=== PATIENT | female | born 1980 | race Caucasian/White ===

== ENCOUNTER 2018-04-08 16:11 | Emergency (ER) | payer OTHER ==
[2018-04-08] MEDS ORDERED: Pepcid 20 MG VIAL IV ONE ×2 (16:35→16:56)
[2018-04-08] MEDS ORDERED: TORAdol 30 mg Injection IV ONE (16:35)
[2018-04-08] MEDS ORDERED: Sodium Chloride 0.9% 1000 ML 1,000 ML IV SCH (16:45)
[2018-04-08 16:54] LABS: BASOPHIL % 0.1 % (0.0-0.4); Basophil (Absolute #) 0.01 (0-0.4); Granulocyte Absolute (ANC) 6.75 (1.4-6.9); Granulocytes % 69.5 % (36.0-66.0); Hematocrit 38.2 % (35-47); Hemoglobin 13.1 gm/dl (12.0-16.0); Lymphocytes % 21.6 % (24.0-44.0); Mean Cell Volume 90.1 fl (78-100); Mean Corpuscular Hemoglobin 30.9 pg (26-32); Mean Corpuscular Hgb Concent. 34.3 g/dl (32-36); Monocyte (Absolute #) 0.76 (0.0-1.3); Monocytes % 7.8 % (0.0-12.0); Platelet Count 261 K/mm3 (150-450); Red Blood Count 4.24 M/mm3 (4.1-5.4); Red Cell Distribution Width 13.9 % (11.5-14.0); White Blood Count 9.7 K/mm3 (4.0-10.5)
--- NOTE | 2018-04-08 16:54 | ERPHSYRPT ---
- History of Present Illness Time Seen by Provider: 04/08/18 16:35 Historian: patient Exam Limitations: no limitations Patient Subjective Stated Complaint: pt reports abd pain for 3 days. localized to the right upper quad radiating around to the back. states her chiropractor told her it could be related to her gallbladder. Triage Nursing Assessment: pt is aox3, pupils perrl, resps easy and non labored , pt afebrile, radial pulses strong and equal, abd is soft and tender to the right upper quadrant with pain radiating to the back, bowel sounds are present and normoactive x4. pt denies nausea or vomiting. skin is pink warm and dry. Physician History: C/o RUQ intermittent abdominal pain x 3 days, denies nausea, vomiting, diarrhea , urinary complaints, fever, chills, or other complaints, food did not change her pain. Timing/Duration: day(s) (3) Activities at Onset: none Quality: cramping, sharpness Abdominal Pain Onset Location: RUQ Pain Radiation: no radiation Severity of Pain-Max: severe Severity of Pain-Current: mild Modifying Factors: Improves With: nothing Associated Symptoms: denies symptoms Previous symptoms: no prior history Allergies/Adverse Reactions: No Known Drug Allergies Allergy (Verified 04/08/18 16:27) Home Medications: Ferrous Sulfate 325 mg [Feosol 325 mg] 325 mg PO DAILY 02/21/16 [History] Fluticasone Propionate [Flonase Allergy Relief] 2 sprays NS DAILY 02/21/16 [ History] Loratadine 10 mg [Claritin 10 mg] 10 mg PO DAILY 02/21/16 [History] Vits W-Ca,Fe,FA(<1Mg) [] 1 tab PO DAILY 02/21/16 [History] Hx Tetanus, Diphtheria Vaccination/Date Given: No Hx Influenza Vaccination/Date Given: No Hx Pneumococcal Vaccination/Date Given: No Immunizations Up to Date: Yes - Review of Systems Constitutional: No Symptoms Abdominal/Gastrointestinal: Abdominal Pain All Other Systems: Reviewed and Negative - Past Medical History Pertinent Past Medical History: Yes Neurological History: Migraines ENT History: No Pertinent History Cardiac History: Hypertension Respiratory History: No Pertinent History Endocrine Medical History: No Pertinent History Musculoskeletal History: No Pertinent History GI Medical History: No Pertinent History History: No Pertinent History Psycho-Social History: Anxiety, Depression Female Reproductive Disorders: No Pertinent History Other Medical History: pt states that she had hypertension with anxiety and depression in the past. pt states that she does have hypertension with this - Past Surgical History Past Surgical History: Yes Neuro Surgical History: No Pertinent History Cardiac: No Pertinent History Respiratory: No Pertinent History Gastrointestinal: No Pertinent History Genitourinary: No Pertinent History Musculoskeletal: No Pertinent History Female Surgical History: Other Other Surgical History: biopsy of cervix d/t abnormal cells. surgery to remove one fallopian tube due to tubal - Social History Smoking Status: Current every day smoker How long have you smoked: 15 Exposure to second hand smoke: Yes Drug Use: none Patient Lives Alone: No - Female History Hx Last Menstrual Period: 03/08/18 Hx Now: No (tubal) - Nursing Vital Signs Nursing Vital Signs: Initial Vital Signs Temperature 98.9 F 04/08/18 16:17 Pulse Rate 90 04/08/18 16:17 Respiratory Rate 20 04/08/18 16:17 Blood Pressure 159/93 04/08/18 16:17 O2 Sat by Pulse Oximetry 98 04/08/18 16:17 Pain Scale Pain Intensity 5 - Physical Exam General Appearance: no apparent distress Eye Exam: eyes nml inspection Ears, Nose, Throat Exam: normal ENT inspection Neck Exam: normal inspection, non-tender Respiratory Exam: normal breath sounds, lungs clear Cardiovascular Exam: regular rate/rhythm, normal heart sounds, normal peripheral pulses, No murmur Gastrointestinal/Abdomen Exam: soft, normal bowel sounds, tenderness (RUQ, moderate) Back Exam: normal inspection, CVA tenderness (mild, rigfht) Extremity Exam: normal inspection Neurologic Exam: alert, oriented x 3 Skin Exam: normal color, warm, dry Lymphatic Exam: No adenopathy SpO2 Interpretation: normal SpO2: 98 Oxygen Delivery: Room Air - Course Nursing assessment & vital signs reviewed: Yes - CT Exams Abdomen/Pelvis CT Interpretation: Tele-radiologist Report, Other (Cholelithiasis with a small subcentimeter stone.) Ordered Tests: Active Orders 24 hr Category Date Time Status IV Insertion STAT Care 04/08/18 16:35 Active NPO (ED) STAT Care 04/08/18 16:35 Active ABDOMEN AND PELVIS W CONTRAST [CT] Stat Exams 04/08/18 16:35 Taken AMYLASE Stat Lab 04/08/18 16:48 Completed CBC W DIFF Stat Lab 04/08/18 16:48 Completed CMP Stat Lab 04/08/18 16:48 Completed HCG,QUALITATIVE URINE Stat Lab 04/08/18 16:48 Completed LIPASE Stat Lab 04/08/18 16:48 Completed UA W/ MICROSCOPIC Stat Lab 04/08/18 16:48 Completed Medication Summary Generic Name Dose Route Start Last Admin Trade Name Freq PRN Reason Stop Dose Admin Sodium Chloride 1,000 mls @ 100 mls/hr 04/08/18 16:45 04/08/18 17:30 Sodium Chloride 0.9% 1000 Ml IV 05/08/18 16:44 100 mls/hr .Q10H SHEILA Administration Discontinued Medications Generic Name Dose Route Start Last Admin Trade Name Freq PRN Reason Stop Dose Admin Famotidine 20 mg 04/08/18 16:35 04/08/18 17:30 Pepcid 20 Mg Vial IV 04/08/18 16:36 20 mg STAT ONE Administration Famotidine Confirm 04/08/18 16:56 Pepcid 20 Mg Vial Administered 04/08/18 16:57 Dose 20 mg IV .STK-MED ONE Ketorolac Tromethamine 30 mg 04/08/18 16:35 04/08/18 17:30 Toradol 30 Mg Injection IV 04/08/18 16:36 30 mg STAT ONE Administration Ketorolac Tromethamine Confirm 04/08/18 16:56 Toradol 30 Mg Injection Administered 04/08/18 16:57 Dose 30 mg .ROUTE .STK-MED ONE Lab/Rad Data: Laboratory Result Diagrams 04/08/18 16:48 04/08/18 16:48 Laboratory Results 04/08/18 04/08/18 04/08/18 Range/Units 16:48 16:48 16:48 WBC (4.0-10.5) K/mm3 RBC (4.1-5.4) M/mm3 Hgb (12.0-16.0) gm/dl Hct (35-47) % MCV (78-100) fl MCH (26-32) pg MCHC (32-36) g/dl RDW (11.5-14.0) % Plt Count (150-450) K/mm3 MPV (6-9.5) fl Gran % (36.0-66.0) % Eos # (Auto) (0-0.5) Absolute Lymphs (auto) (1.0-4.6) Absolute Monos (auto) (0.0-1.3) Lymphocytes % (24.0-44.0) % Monocytes % (0.0-12.0) % Eosinophils % (0.00-5.0) % Basophils % (0.0-0.4) % Absolute Granulocytes (1.4-6.9) Basophils # (0-0.4) Sodium 142 (137-145) mmol/L Potassium 3.4 L (3.5-5.1) mmol/L Chloride 106 (98-107) mmol/L Carbon Dioxide 27 (22-30) mmol/L Anion Gap 12.0 (5-15) MEQ/L BUN 8 (7-17) mg/dL Creatinine 0.56 (0.52-1.04) mg/dL Estimated GFR > 60.0 ML/MIN Glucose 97 (74-106) mg/dL Calcium 8.7 (8.4-10.2) mg/dL Total Bilirubin 0.40 (0.2-1.3) mg/dL AST 13 L (14-36) U/L ALT 12 (0-35) U/L Alkaline Phosphatase 54 (38-126) U/L Serum Total Protein 7.0 (6.3-8.2) g/dL Albumin 3.8 (3.5-5.0) g/dL Amylase 41 (30-110) U/L Lipase 51 (23-300) U/L Ur Collection Type VOID Urine Color YELLOW (YELLOW) Urine Appearance CLEAR (CLEAR) Urine pH 8.0 (5-6) Ur Specific [place] 1.005 (1.005-1.025) Urine Protein NEGATIVE (Negative) Urine Ketones NEGATIVE (NEGATIVE) Urine Blood TRACE NON-HEM (0-5) Jeffery/ul Urine Nitrite NEGATIVE (NEGATIVE) Urine Bilirubin NEGATIVE (NEGATIVE) Urine Urobilinogen NORMAL (0-1) mg/dL Ur Leukocyte Esterase NEGATIVE (NEGATIVE) Urine Microscopic RBC 2-5 (0-2) /HPF Urine Microscopic WBC 0-2 (0-5) /HPF Ur Epithelial Cells MODERATE (FEW) /HPF Urine Bacteria FEW (NEGATIVE) /HPF Urine Mucus SLIGHT (NEGATIVE) /HPF Urine Culture Reflexed NO (NO) Urine Glucose NEGATIVE (NEGATIVE) mg/dL Urine HCG, Qual NEGATIVE (Negative) Specimen Received 04/08/18 1700 04/08/18 Range/Units 16:48 WBC 9.7 (4.0-10.5) K/mm3 RBC 4.24 (4.1-5.4) M/mm3 Hgb 13.1 (12.0-16.0) gm/dl Hct 38.2 (35-47) % MCV 90.1 (78-100) fl MCH 30.9 (26-32) pg MCHC 34.3 (32-36) g/dl RDW 13.9 (11.5-14.0) % Plt Count 261 (150-450) K/mm3 MPV 10.0 H (6-9.5) fl Gran % 69.5 H (36.0-66.0) % Eos # (Auto) 0.10 (0-0.5) Absolute Lymphs (auto) 2.10 (1.0-4.6) Absolute Monos (auto) 0.76 (0.0-1.3) Lymphocytes % 21.6 L (24.0-44.0) % Monocytes % 7.8 (0.0-12.0) % Eosinophils % 1.0 (0.00-5.0) % Basophils % 0.1 (0.0-0.4) % Absolute Granulocytes 6.75 (1.4-6.9) Basophils # 0.01 (0-0.4) Sodium (137-145) mmol/L Potassium (3.5-5.1) mmol/L Chloride (98-107) mmol/L Carbon Dioxide (22-30) mmol/L Anion Gap (5-15) MEQ/L BUN (7-17) mg/dL Creatinine (0.52-1.04) mg/dL Estimated GFR ML/MIN Glucose (74-106) mg/dL Calcium (8.4-10.2) mg/dL Total Bilirubin (0.2-1.3) mg/dL AST (14-36) U/L ALT (0-35) U/L Alkaline Phosphatase (38-126) U/L Serum Total Protein (6.3-8.2) g/dL Albumin (3.5-5.0) g/dL Amylase (30-110) U/L Lipase (23-300) U/L Ur Collection Type Urine Color (YELLOW) Urine Appearance (CLEAR) Urine pH (5-6) Ur Specific [place] (1.005-1.025) Urine Protein (Negative) Urine Ketones (NEGATIVE) Urine Blood (0-5) Jeffery/ul Urine Nitrite (NEGATIVE) Urine Bilirubin (NEGATIVE) Urine Urobilinogen (0-1) mg/dL Ur Leukocyte Esterase (NEGATIVE) Urine Microscopic RBC (0-2) /HPF Urine Microscopic WBC (0-5) /HPF Ur Epithelial Cells (FEW) /HPF Urine Bacteria (NEGATIVE) /HPF Urine Mucus (NEGATIVE) /HPF Urine Culture Reflexed (NO) Urine Glucose (NEGATIVE) mg/dL Urine HCG, Qual (Negative) Specimen Received - Progress Progress: improved Progress Note: 04/08/18 18:08 I discussed the test results with this patient, and instructed her about low fat and spice diet. Suggested early follow up with her doctor and return if severe pain, vomiting, or fever> 102 F. She understood and agreed. Counseled pt/family regarding: lab results, diagnosis, need for follow-up, rad results - Departure Time of Disposition: 18:09 Departure Disposition: Home Clinical Impression: Cholelithiasis Qualifiers: Cholelithiasis location: other site Biliary obstruction: without biliary obstruction Qualified Code(s): K80.80 - Other cholelithiasis without obstruction Condition: Stable Critical Care Time: No Referrals: DONI MCGHEE [Primary Care Provider] - Instructions: Gallstones (DC) Additional Instructions: Rest x 2-3 days, drink plenty of fluids, and continue fat and spice free diet! Follow up with your physician in 2-3 days, return if severe pain, vomiting, fever> 102 F! Prescriptions: Phenobarb/Hyoscy/Atropine/Scop [ Tablet] 16.2 mg PO Q6H PRN #15 tablet PRN Reason: Pain
[2018-04-08] MEDS ORDERED: Sodium Chloride 0.9% 1000 ML 1,000 ML ONE (16:56)
[2018-04-08] MEDS ORDERED: TORAdol 30 mg Injection ONE (16:56)
[2018-04-08 17:11] LABS: ALBUMIN 3.8 g/dL (3.5-5.0); ALKALINE PHOSPHATASE 54 U/L (38-126); AMYLASE 41 U/L (30-110); BLOOD UREA NITROGEN 8 mg/dL (7-17); CHLORIDE 106 mmol/L (98-107); Calcium 8.7 mg/dL (8.4-10.2); Carbon Dioxide 27 mmol/L (22-30); Creatinine 1 0.56 mg/dL (0.52-1.04); Glucose 97 mg/dL (74-106); LIPASE 51 U/L (23-300); Potassium 3.4 mmol/L (3.5-5.1); SGOT/AST 13 U/L (14-36); SGPT/ALT 12 U/L (0-35); SODIUM 142 mmol/L (137-145)
[2018-04-08 17:30] LABS: Appearance CLEAR (CLEAR); Bacteria FEW /HPF (NEGATIVE); Bilirubin NEGATIVE (NEGATIVE); Blood TRACE NON-HEM Ery/ul (0-5); Epithelial Cells MODERATE /HPF (FEW); Glucose NEGATIVE (NEGATIVE); Ketones NEGATIVE (NEGATIVE); Leukocyte Esterase NEGATIVE (NEGATIVE); Mucus SLIGHT /HPF (NEGATIVE); Nitrite NEGATIVE (NEGATIVE); Protein,Urine Dip NEGATIVE (Negative); Specific Gravity 1.005 (1.005-1.025); Urobilinogen NORMAL mg/dL (0-1); WBC 0-2 /HPF (0-5)
[2018-04-08 18:24] VITALS: BP 115/62; PULSE 78; O2SAT 97
--- NOTE | 2018-04-08 20:53 | XRAY ---
Indication: Right upper quadrant pain 3 days. Multiple contiguous axial images obtained through the abdomen and pelvis using 80 cc Isovue 370 contrast only. Comparison: None Lung bases are clear. Heart is not enlarged. Noncontrasted stomach and bowel loops appear nonobstructed. Normal appendix. 4.5 cm left ovary cyst with small adnexal fluid presumed rupture/leaking cyst. No free air. 1 cm gallstone. Remaining liver, gallbladder, pancreas, spleen, adrenal glands, kidneys, ureters, bladder, uterus, and aorta appear unremarkable. No pathologic retroperitoneal lymphadenopathy. Osseous structures intact. No ventral or inguinal hernias. Impression: 1. 4.5 cm left ovary cyst. Small free fluid suggests rupture/leaking cyst. Ultrasound may yield further formation if clinically warranted. 2. Cholelithiasis without CT features for cholecystitis. Ultrasound may yield further information if clinically warranted. 3. Remaining CT abdomen/pelvis with contrast exam is negative. Comment: Preliminary interpretation was made by C. No critical discrepancy. CTDI 20.25
== END 2018-04-08 18:29 | disposition home or self-care (01) ==
LOC: ED 16:11
DX: K80.20 Calculus of gallbladder without cholecystitis without obstruction (principal); R10.11 Right upper quadrant pain; Z79.899 Other long term (current) drug therapy
CPT/HCPCS: 36000; 36415; 74177; 80053; 81000; 82150; 83690; 84703; 85025; 96360; 96374; 96375; 99284; J1885

== ENCOUNTER 2018-04-09 13:57 | Emergency (ER) | payer OTHER ==
[2018-04-09] MEDS ORDERED: Sodium Chloride 0.9% 1000 ML 1,000 ML IV STA (14:20)
[2018-04-09] MEDS ORDERED: TORAdol 30 mg Injection IV ONE (14:20)
--- NOTE | 2018-04-09 14:27 | ERPHSYRPT ---
- History of Present Illness Time Seen by Provider: 04/09/18 14:13 Historian: patient Exam Limitations: clinical condition Patient Subjective Stated Complaint: Pt states "I was here yesterday and they tried to escribe a schedule 4 drug and that does not go through. I do not take pain meds, but I need something to take the edge off." Triage Nursing Assessment: Pt alert and oriented X 3, skin pwd. Pt ambulates while holding abdomen. Pt on her cell phone. Physician History: PATIENT COMPLAINS OF RIGHT UPPER ABDOMINAL PAIN X 4 DAYS, CONSTANT RADIATES TO BACK, EVALUATED IN EMERGENCY LAST NIGHT WITH ABDOMINAL PELVIC CT SCAN CONSISTENT WITH 1CM GALLSTONE WITH NO FEATURES OF CHOLECYSTITIS, ON 04/08/2018 AND A 4.5CM LEFT OVARIAN CYST. DENIES NAUSEA, EMESIS OR FEVER. Timing/Duration: day(s) Activities at Onset: none Quality: sharpness Abdominal Pain Onset Location: RUQ, epigastric Pain Radiation: back Severity of Pain-Max: moderate Severity of Pain-Current: moderate Modifying Factors: Improves With: movement Associated Symptoms: denies symptoms Previous symptoms: same symptoms as today Allergies/Adverse Reactions: No Known Drug Allergies Allergy (Verified 04/08/18 16:27) Hx Tetanus, Diphtheria Vaccination/Date Given: No Hx Influenza Vaccination/Date Given: No Hx Pneumococcal Vaccination/Date Given: No Immunizations Up to Date: Yes - Review of Systems Constitutional: No Fever, No Chills Eyes: No Symptoms Ears, Nose, & Throat: No Symptoms Respiratory: No Symptoms, No Cough, No Dyspnea Cardiac: No Chest Pain, No Edema, No Syncope Abdominal/Gastrointestinal: Abdominal Pain, No Nausea, No Vomiting, No Diarrhea Genitourinary Symptoms: No Symptoms, No Dysuria Musculoskeletal: No Symptoms, No Back Pain, No Neck Pain Skin: No Rash Neurological: No Dizziness, No Focal Weakness, No Sensory Changes Psychological: No Symptoms Endocrine: No Symptoms All Other Systems: Reviewed and Negative - Past Medical History Pertinent Past Medical History: Yes Neurological History: Migraines ENT History: No Pertinent History Cardiac History: Hypertension Respiratory History: No Pertinent History Endocrine Medical History: No Pertinent History Musculoskeletal History: No Pertinent History GI Medical History: No Pertinent History History: No Pertinent History Psycho-Social History: Anxiety, Depression Female Reproductive Disorders: No Pertinent History Other Medical History: pt states that she had hypertension with anxiety and depression in the past. pt states that she does have hypertension with this - Past Surgical History Past Surgical History: Yes Neuro Surgical History: No Pertinent History Cardiac: No Pertinent History Respiratory: No Pertinent History Gastrointestinal: No Pertinent History Genitourinary: No Pertinent History Musculoskeletal: No Pertinent History Female Surgical History: Other Other Surgical History: biopsy of cervix d/t abnormal cells. surgery to remove one fallopian tube due to tubal - Social History Smoking Status: Current every day smoker How long have you smoked: years Exposure to second hand smoke: Yes Drug Use: none Patient Lives Alone: No - Female History Hx Last Menstrual Period: 03/12/2018 Hx Now: No - Nursing Vital Signs Nursing Vital Signs: Initial Vital Signs Temperature 98.8 F 04/09/18 14:01 Pulse Rate 97 H 04/09/18 14:01 Respiratory Rate 18 04/09/18 14:01 Blood Pressure 165/101 04/09/18 14:01 O2 Sat by Pulse Oximetry 99 04/09/18 14:01 Pain Scale Pain Intensity 4 - Physical Exam General Appearance: no apparent distress, alert Eye Exam: PERRL/EOMI, eyes nml inspection Ears, Nose, Throat Exam: normal ENT inspection, pharynx normal, moist mucous membranes Neck Exam: normal inspection, non-tender, supple, full range of motion Respiratory Exam: normal breath sounds, lungs clear, No respiratory distress Cardiovascular Exam: regular rate/rhythm, normal heart sounds Gastrointestinal/Abdomen Exam: soft, normal bowel sounds, tenderness (RIGHT UPPER QUADRANT TENDERNESS), No mass Back Exam: normal inspection, normal range of motion, No CVA tenderness, No vertebral tenderness Extremity Exam: normal inspection, normal range of motion, pelvis stable Neurologic Exam: alert, oriented x 3, cooperative, normal mood/affect, nml cerebellar function, sensation nml, No motor deficits Skin Exam: normal color, warm, dry SpO2 Interpretation: normal SpO2: 99 Oxygen Delivery: Room Air Ordered Tests: Active Orders 24 hr Category Date Time Status IV Insertion STAT Care 04/09/18 14:20 Active AMYLASE Stat Lab 04/09/18 14:30 Completed CBC W DIFF Stat Lab 04/09/18 14:30 Completed CMP Stat Lab 04/09/18 14:30 Completed LIPASE Stat Lab 04/09/18 14:30 Completed Medication Summary Generic Name Dose Route Start Last Admin Trade Name Freq PRN Reason Stop Dose Admin Sodium Chloride 1,000 mls @ 999 mls/hr 04/09/18 14:20 04/09/18 14:35 Sodium Chloride 0.9% 1000 Ml IV 04/09/18 15:20 999 mls/hr .Q1H1M STA Administration Discontinued Medications Generic Name Dose Route Start Last Admin Trade Name Vicq PRN Reason Stop Dose Admin Sodium Chloride Confirm 04/09/18 14:34 Sodium Chloride 0.9% 1000 Ml Administered 04/09/18 14:35 Dose 1,000 mls @ ud .ROUTE .STK-MED ONE Ketorolac Tromethamine 30 mg 04/09/18 14:20 04/09/18 14:35 Toradol 30 Mg Injection IV 04/09/18 14:21 30 mg STAT ONE Administration Ketorolac Tromethamine Confirm 04/09/18 14:34 Toradol 30 Mg Injection Administered 04/09/18 14:35 Dose 30 mg .ROUTE .STK-MED ONE Lab/Rad Data: Laboratory Result Diagrams 04/09/18 14:30 04/09/18 14:30 Laboratory Results 04/09/18 04/09/18 Range/Units 14:30 14:30 WBC 9.6 (4.0-10.5) K/mm3 RBC 4.36 (4.1-5.4) M/mm3 Hgb 13.2 (12.0-16.0) gm/dl Hct 39.5 (35-47) % MCV 90.6 (78-100) fl MCH 30.3 (26-32) pg MCHC 33.4 (32-36) g/dl RDW 14.3 H (11.5-14.0) % Plt Count 272 (150-450) K/mm3 MPV 10.1 H (6-9.5) fl Gran % 72.0 H (36.0-66.0) % Eos # (Auto) 0.10 (0-0.5) Absolute Lymphs (auto) 1.81 (1.0-4.6) Absolute Monos (auto) 0.76 (0.0-1.3) Lymphocytes % 18.9 L (24.0-44.0) % Monocytes % 7.9 (0.0-12.0) % Eosinophils % 1.0 (0.00-5.0) % Basophils % 0.2 (0.0-0.4) % Absolute Granulocytes 6.91 H (1.4-6.9) Basophils # 0.02 (0-0.4) Sodium 143 (137-145) mmol/L Potassium 3.5 (3.5-5.1) mmol/L Chloride 108 H (98-107) mmol/L Carbon Dioxide 26 (22-30) mmol/L Anion Gap 13.2 (5-15) MEQ/L BUN 10 (7-17) mg/dL Creatinine 0.55 (0.52-1.04) mg/dL Estimated GFR > 60.0 ML/MIN Glucose 92 (74-106) mg/dL Calcium 8.9 (8.4-10.2) mg/dL Total Bilirubin 0.40 (0.2-1.3) mg/dL AST 14 (14-36) U/L ALT 11 (0-35) U/L Alkaline Phosphatase 52 (38-126) U/L Serum Total Protein 7.3 (6.3-8.2) g/dL Albumin 4.0 (3.5-5.0) g/dL Amylase 52 (30-110) U/L Lipase 52 (23-300) U/L - Progress Progress: unchanged, pain not gone completely Progress Note: 04/09/18 14:28 IV NORMAL SALINE 1 LITER BOLUS OVER 1 HOUR, TORADOL 30MG IV WITH MINIMAL TO MODERATE IMPROVEMENT. PATIENT HAS NO RIDE HOME, WILL SENT HOME WITH PRESCRIPTION OF NORCO 10/325 DISP 15 04/09/18 15:10 Counseled pt/family regarding: lab results, diagnosis, need for follow-up - Departure Time of Disposition: 15:15 Departure Disposition: Home Clinical Impression: ACUTE BILARY COLIC Condition: Stable Critical Care Time: No Referrals: DONI MCGHEE [Primary Care Provider] - Additional Instructions: FOLLOWUP WITH PRIMARY CARE PROVIDER FOR REVIEW OF EMERGENCY ROOM VISIT AND ABDOMINAL PELVIC CT SCAN. ZOFRAN 4MG EVERY 6 HOURS FOR NAUSEA. NORCO 10/325 EVERY 4-6 HOURS FOR PAIN. RETURN TO EMERGENCY FOR INCREASING PAIN DISCOMFORT, ONSET OF VOMITING OR FEVER. Prescriptions: Hydrocodone/APAP 10/325 mg [Serafina 10/325 MG Tablet] 1 tab PO Q4H PRN PRN # 15 tablet MDD 4 PRN Reason: Pain Ondansetron ODT 4 MG [Zofran Odt 4 mg] 4 mg PO Q6H PRN PRN #10 tab.rapdis PRN Reason: Nausea
[2018-04-09] MEDS ORDERED: Sodium Chloride 0.9% 1000 ML 1,000 ML ONE (14:34)
[2018-04-09] MEDS ORDERED: TORAdol 30 mg Injection ONE (14:34)
[2018-04-09 14:45] LABS: BASOPHIL % 0.2 % (0.0-0.4); Basophil (Absolute #) 0.02 (0-0.4); Granulocyte Absolute (ANC) 6.91 (1.4-6.9); Hematocrit 39.5 % (35-47); Hemoglobin 13.2 gm/dl (12.0-16.0); Lymphocyte (Absolute #) 1.81 (1.0-4.6); Lymphocytes % 18.9 % (24.0-44.0); Mean Cell Volume 90.6 fl (78-100); Mean Corpuscular Hemoglobin 30.3 pg (26-32); Mean Corpuscular Hgb Concent. 33.4 g/dl (32-36); Mean Platelet Volume 10.1 fl (6-9.5); Monocyte (Absolute #) 0.76 (0.0-1.3); Monocytes % 7.9 % (0.0-12.0); Platelet Count 272 K/mm3 (150-450); Red Blood Count 4.36 M/mm3 (4.1-5.4); Red Cell Distribution Width 14.3 % (11.5-14.0); White Blood Count 9.6 K/mm3 (4.0-10.5)
[2018-04-09 14:53] LABS: ALKALINE PHOSPHATASE 52 U/L (38-126); AMYLASE 52 U/L (30-110); ANION GAP 13.2 MEQ/L (5-15); BLOOD UREA NITROGEN 10 mg/dL (7-17); CHLORIDE 108 mmol/L (98-107); Calcium 8.9 mg/dL (8.4-10.2); Carbon Dioxide 26 mmol/L (22-30); Creatinine 1 0.55 mg/dL (0.52-1.04); Glucose 92 mg/dL (74-106); LIPASE 52 U/L (23-300); Potassium 3.5 mmol/L (3.5-5.1); SGOT/AST 14 U/L (14-36); SGPT/ALT 11 U/L (0-35); SODIUM 143 mmol/L (137-145); Total Protein 7.3 g/dL (6.3-8.2)
[2018-04-09 14:57] VITALS: BP 166/98; PULSE 70
[2018-04-09 15:16] VITALS: O2SAT 99
== END 2018-04-09 15:28 | disposition home or self-care (01) ==
LOC: ED 13:57
DX: K80.70 Calculus of gallbladder and bile duct without cholecystitis without obstruction (principal); N83.202 Unspecified ovarian cyst, left side
CPT/HCPCS: 36000; 36415; 80053; 82150; 83690; 85025; 96360; 96374; 99284; J1885

== ENCOUNTER 2021-12-29 17:20 | Emergency (ER) | payer MEDICAID ==
--- NOTE | 2021-12-29 17:32 | ERPHSYRPT ---
- History of Present Illness Time Seen by Provider: 12/29/21 17:31 Source: patient Physician History: This is a 41-year-old white female patient of Dr. Reyes has a history of hypertension, migraine headaches, anxiety and depression and presents with right shoulder pain for 1 week. Patient denies chest pain. She has no shortness of breath. Patient does not recall a specific injury to the area. Occurred: last week Quality: constant, aching Severity of Pain-Max: moderate Severity of Pain-Current: mild (Moderate) Extremities Pain Location: shoulder: right Modifying Factors: Improves With: movement Associated Symptoms: none Allergies/Adverse Reactions: No Known Drug Allergies Allergy (Verified 12/29/21 17:43) Hx Tetanus, Diphtheria Vaccination/Date Given: No Hx Influenza Vaccination/Date Given: No Hx Pneumococcal Vaccination/Date Given: No Travel Risk - International Travel Have you traveled outside of the country in past 3 weeks: No - Coronavirus Screening Are you exhibiting any of the following symptoms?: No Close contact with a COVID-19 positive Pt in past 14-21 Days: No - Review of Systems Constitutional: No Symptoms Eyes: No Symptoms Ears, Nose, & Throat: No Symptoms Respiratory: No Symptoms Cardiac: No Symptoms Abdominal/Gastrointestinal: No Symptoms Genitourinary Symptoms: No Symptoms Musculoskeletal: Joint Pain (Right shoulder) Skin: No Symptoms Neurological: No Symptoms Psychological: No Symptoms Endocrine: No Symptoms Hematologic/Lymphatic: No Symptoms Immunological/Allergic: No Symptoms All Other Systems: Reviewed and Negative - Past Medical History Pertinent Past Medical History: Yes Neurological History: Migraines ENT History: No Pertinent History Cardiac History: Hypertension Respiratory History: No Pertinent History Endocrine Medical History: No Pertinent History Musculoskeletal History: No Pertinent History GI Medical History: No Pertinent History History: No Pertinent History Psycho-Social History: Anxiety, Depression Female Reproductive Disorders: No Pertinent History Other Medical History: pt states that she had hypertension with anxiety and depression in the past. pt states that she does have hypertension with this - Past Surgical History Past Surgical History: Yes Neuro Surgical History: No Pertinent History Cardiac: No Pertinent History Respiratory: No Pertinent History Gastrointestinal: No Pertinent History Genitourinary: No Pertinent History Musculoskeletal: No Pertinent History Female Surgical History: Other Other Surgical History: biopsy of cervix d/t abnormal cells. surgery to remove one fallopian tube due to tubal - Social History Smoking Status: Current every day smoker How long have you smoked: years Exposure to second hand smoke: Yes Drug Use: none Patient Lives Alone: No - Nursing Vital Signs Nursing Vital Signs: Initial Vital Signs Temperature 98.6 F 12/29/21 17:36 Pulse Rate 94 H 12/29/21 17:36 Respiratory Rate 16 12/29/21 17:36 Blood Pressure 172/116 12/29/21 17:36 O2 Sat by Pulse Oximetry 92 L 12/29/21 17:36 Pain Scale Pain Intensity 6 - Physical Exam General Appearance: no apparent distress, alert, anxiety Eyes, Ears, Nose, Throat Exam: normal ENT inspection, moist mucous membranes Neck Exam: normal inspection, non-tender, supple, full range of motion Cardiovascular/Respiratory Exam: chest non-tender, no respiratory distress Abdominal Exam: non-tender Back Exam: normal inspection, normal range of motion, No CVA tenderness, No vertebral tenderness Shoulder Exam: normal inspection, no evidence of injury, normal ROM, pain Elbow/Forearm Exam: normal inspection, non-tender, no evidence of injury, normal ROM Wrist Exam: normal inspection, non-tender, no evidence of injury, normal ROM Hand Exam: normal inspection, non-tender, no evidence of injury, normal ROM Neuro/Tendon Exam: normal sensation, normal motor functions, normal tendon functions, responds to pain Mental Status Exam: alert, oriented x 3, cooperative Skin Exam: normal color, warm, dry SpO2 Interpretation: normal O2 Delivery: Room Air - Course Nursing assessment & vital signs reviewed: Yes Ordered Tests: Active Orders 24 hr Category Date Time Status SHOULDER Stat Exams 12/29/21 19:00 Taken Medication Summary Discontinued Medications Generic Name Dose Route Start Last Admin Trade Name Marissa PRN Reason Stop Dose Admin Hydrocodone Bitart/Acetaminophen 1 tab 12/29/21 19:20 Hydrocodone/Apap 5/325 Mg Tablet PO 12/29/21 19:21 STAT ONE Methylprednisolone Sodium 0 mg 12/29/21 19:20 Succinate 125 mg/ Sterile IM 12/29/21 19:21 Water 2 ml STAT ONE Orphenadrine Citrate 60 mg 12/29/21 19:21 Orphenadrine Citrate 60 Mg/2 Ml Amp IM 12/29/21 19:22 STAT ONE - Progress Progress: improved, pain not gone completely Progress Note: 12/29/21 19:22 X-ray right shoulder shows no acute fracture or dislocation. Counseled pt/family regarding: diagnosis, need for follow-up, rad results - Departure Departure Disposition: Home Clinical Impression: Right shoulder pain Condition: Stable Critical Care Time: No Referrals: ODNI REYES [Primary Care Provider] - Follow up/PCP as directed Additional Instructions: Take medication as prescribed. Follow-up with [facility] outpatient walk-in orthopedic clinic if pain persist beyond the next 48 hours. Prescriptions: Prednisone 10 mg [Deltasone 10 mg] 10 mg PO TID #12 tablet Orphenadrine Citrate 100 mg [Norflex 100 MG Tablet] 100 mg PO BID #10 tab
[2021-12-29 19:04] VITALS: BP 167/108; PULSE 107; O2SAT 100
[2021-12-29] MEDS ORDERED: solu-MEDROL 125 MG, Sterile H2O 10 ml 2 ML IM ONE ×2 (19:20)
[2021-12-29] MEDS ORDERED: NORCO 5/325 MG PO ONE (19:20)
[2021-12-29] MEDS ORDERED: Norflex 60 MG/2 ML IM ONE (19:21)
[2021-12-29] MEDS ORDERED: NORCO 5/325 MG ONE (19:24)
[2021-12-29] MEDS ORDERED: Norflex 60 MG/2 ML ONE (19:24)
[2021-12-29] MEDS ORDERED: Sterile H2O 10 ml IJ ONE (19:24)
[2021-12-29] MEDS ORDERED: solu-MEDROL ONE (19:24)
--- NOTE | 2021-12-30 08:48 | XRAY ---
Indication: Pain 1 week. Limited range of motion. No known injury. Comparison: None 3 view right shoulder demonstrates mild AC degenerative arthropathy. No other bony, articular, or soft tissue abnormalities.
== END 2021-12-29 19:53 | disposition home or self-care (01) ==
LOC: ED 17:20
DX: M25.511 Pain in right shoulder (principal); I10 Essential (primary) hypertension; Z72.0 Tobacco use; Z79.52 Long term (current) use of systemic steroids
CPT/HCPCS: 73030; 96372; 99284; J2360; J2930; A9270-GY

== ENCOUNTER 2023-02-22 17:18 | Emergency (ER) | payer BC, OTHER ==
[2023-02-22] MEDS ORDERED: Zofran 4 MG/2 ML VIAL IV ONE (17:57)
[2023-02-22] MEDS ORDERED: MORPHINE SULFATE 2 MG INJ IV ONE (17:57)
[2023-02-22] MEDS ORDERED: Zofran 4 MG/2 ML VIAL ONE (18:01)
[2023-02-22] MEDS ORDERED: MORPHINE SULFATE 2 MG INJ ONE (18:01)
[2023-02-22 18:39] LABS: Absolute Neutrophil Ct (ANC) 4.77 x10^3/uL (1.4-6.9); BASOPHIL % 0.2 % (0.0-0.4); Basophil (Absolute #) 0.02 x10^3/uL (0-0.4); Eosinophil % 1.3 % (0.00-5.0); Eosinophil (Absolute #) 0.11 x10^3/uL (0-0.5); Hematocrit 39.6 % (35-47); Hemoglobin 13.1 g/dL (12.0-16.0); IMMATURE GRAN # 0.02 x10^3u/L (0.00-0.03); IMMATURE GRAN % 0.2 % (0.00-0.4); Lymphocyte (Absolute #) 2.86 x10^3/uL (1.0-4.6); Lymphocytes % 34.1 % (24.0-44.0); Mean Cell Volume 88.2 fL (78-100); Mean Corpuscular Hemoglobin 29.2 pg (26-32); Mean Corpuscular Hgb Concent. 33.1 g/dL (32-36); Mean Platelet Volume 9.3 fL (7.5-11.0); Monocyte (Absolute #) 0.61 x10^3/uL (0.0-1.3); Monocytes % 7.3 % (0.0-12.0); Neutrophil % 56.9 % (36.0-66.0); Platelet Count 351 x10^3/uL (150-450); Red Blood Count 4.49 x10^6/uL (4.1-5.4); Red Cell Distribution Width 13.8 % (11.5-14.0); White Blood Count 8.4 x10^3/uL (4.0-10.5)
[2023-02-22 18:43] LABS: HCG URINE TEST NEGATIVE (NEGATIVE)
--- NOTE | 2023-02-22 18:45 | ERPHSYRPT ---
- History of Present Illness Time Seen by Provider: 02/22/23 18:00 Historian: patient Exam Limitations: no limitations Patient Subjective Stated Complaint: Pt states "I have lower belly pain that kind of moves all over on the left side. It hurts when I have a bowel moveme nt." Triage Nursing Assessment: Pt presented alert and oriented X 3, skin pwd. Pt ambulates with an upright steady gait able to speak in clear full sentences pt guarding her left lower belly. Physician History: Patient is a 42-year-old female presents to our ED with left lower quadrant pain. Patient has had her pain for 4 to 5 days. Patient followed up with Dr. Mcghee. Dr. Mcghee felt patient had diverticulitis and patient was started on Levaquin. Patient currently on Levaquin. Patient was advised to come to our ED if symptoms worsen. Patient is here because of left lower quadrant pain is getting progressively worse. Patient feels her abdomen is distended. No trauma. No fever. No nausea vomiting or diaphoresis. Symptoms are moderate in intensity. Palpation to left lower quadrant reproduces pain. Pain improved with rest. Patient voices no other complaints or concerns at this time. Portions of this note were created with voice recognition technology. There may be grammatical, spelling, punctuation or sound alike errors Timing/Duration: today Quality: aching Abdominal Pain Onset Location: LLQ Pain Radiation: no radiation Severity of Pain-Max: moderate Severity of Pain-Current: mild Modifying Factors: Improves With: palpation Associated Symptoms: denies symptoms Previous symptoms: no prior history Allergies/Adverse Reactions: No Known Drug Allergies Allergy (Verified 12/29/21 17:43) Home Medications: Clonidine HCl 0.1 mg [Clonidine 0.1 mg Tablet] 0.1 mg PO HS 02/22/23 [History] Hydroxyzine HCl 25 mg [Atarax 25 mg] 25 mg PO DAILY 02/22/23 [History] Levofloxacin [Levofloxacin 500 MG Tablet] 500 mg PO DAILY 02/22/23 [History] PARoxetine HCL [Paxil] 30 mg PO DAILY 02/22/23 [History] Hx Tetanus, Diphtheria Vaccination/Date Given: No Hx Influenza Vaccination/Date Given: No Hx Pneumococcal Vaccination/Date Given: No Immunizations Up to Date: Yes Travel Risk - International Travel Have you traveled outside of the country in past 3 weeks: No - Coronavirus Screening Are you exhibiting any of the following symptoms?: No Close contact with a COVID-19 positive Pt in past 14-21 Days: No - Vaccine Status Have you recieved a Covid-19 vaccination: Yes Inclinometer Tester: Moderna - Vaccination Dates Date of 2cond Vaccination (if applicable): 2020 - Review of Systems Constitutional: No Symptoms, No Fever, No Chills Eyes: No Symptoms Ears, Nose, & Throat: No Symptoms Respiratory: No Symptoms, No Cough, No Dyspnea Cardiac: No Symptoms, No Chest Pain, No Edema, No Syncope Abdominal/Gastrointestinal: No Symptoms, No Abdominal Pain, No Nausea, No Vomiting, No Diarrhea Genitourinary Symptoms: No Symptoms, No Dysuria Musculoskeletal: No Symptoms, No Back Pain, No Neck Pain Skin: No Symptoms, No Rash Neurological: No Symptoms, No Dizziness, No Focal Weakness, No Sensory Changes Psychological: No Symptoms Endocrine: No Symptoms Hematologic/Lymphatic: No Symptoms Immunological/Allergic: No Symptoms All Other Systems: Reviewed and Negative - Past Medical History Pertinent Past Medical History: Yes Neurological History: Migraines ENT History: No Pertinent History Cardiac History: Hypertension Respiratory History: No Pertinent History Endocrine Medical History: No Pertinent History Musculoskeletal History: No Pertinent History GI Medical History: No Pertinent History History: No Pertinent History Psycho-Social History: Anxiety, Depression Female Reproductive Disorders: No Pertinent History Other Medical History: pt states that she had hypertension with anxiety and dep ression in the past. pt states that she does have hypertension with this - Past Surgical History Past Surgical History: Yes Neuro Surgical History: No Pertinent History Cardiac: No Pertinent History Respiratory: No Pertinent History Gastrointestinal: No Pertinent History Genitourinary: No Pertinent History Musculoskeletal: No Pertinent History Female Surgical History: Other Other Surgical History: biopsy of cervix d/t abnormal cells. surgery to remove one fallopian tube due to tubal . tubal - Social History Smoking Status: Current every day smoker How long have you smoked: years Exposure to second hand smoke: Yes Drug Use: none Patient Lives Alone: No - Female History Hx Last Menstrual Period: 02/22/2023 Hx Now: No - Nursing Vital Signs Nursing Vital Signs: Initial Vital Signs Temperature 98.5 F 02/22/23 17:30 Pulse Rate 101 H 02/22/23 17:30 Respiratory Rate 22 02/22/23 17:30 Blood Pressure 191/119 02/22/23 17:30 O2 Sat by Pulse Oximetry 99 02/22/23 17:30 Pain Scale Pain Intensity 3 - Physical Exam General Appearance: no apparent distress, alert Eye Exam: PERRL/EOMI, eyes nml inspection Ears, Nose, Throat Exam: normal ENT inspection, pharynx normal, moist mucous membranes Neck Exam: normal inspection, non-tender, supple, full range of motion Respiratory Exam: normal breath sounds, lungs clear, airway intact, No respiratory distress Cardiovascular Exam: regular rate/rhythm, normal heart sounds Gastrointestinal/Abdomen Exam: soft, tenderness (Left lower quadrant pain), No mass Back Exam: normal inspection, normal range of motion, No CVA tenderness, No v ertebral tenderness Extremity Exam: normal inspection, normal range of motion, pelvis stable Neurologic Exam: alert, oriented x 3, cooperative, normal mood/affect, nml cerebellar function, sensation nml, No motor deficits Skin Exam: normal color, warm, dry SpO2 Interpretation: normal SpO2: 99 O2 Delivery: Room Air - Course Nursing assessment & vital signs reviewed: Yes - CT Exams Abdomen/Pelvis CT Interpretation: Tele-radiologist Report (Enlarged liver. Left adnexal mass) Ordered Tests: Active Orders 24 hr Category Date Time Status IV Insertion STAT Care 02/22/23 17:57 Active ABDOMEN AND PELVIS W/0 CONTRAS [CT] Stat Exams 02/22/23 17:58 Completed PELVIC [US] Stat Exams 02/22/23 20:26 Taken CBC W DIFF Stat Lab 02/22/23 18:25 Completed CMP Stat Lab 02/22/23 18:25 Completed CULTURE,URINE Stat Lab 02/22/23 18:15 Received HCG QUALITATIVE, URINE Stat Lab 02/22/23 18:40 Completed LIPASE Stat Lab 02/22/23 18:25 Completed TROPONIN Q4H Lab 02/22/23 18:25 Completed TROPONIN Q4H Lab 02/22/23 22:00 Ordered TROPONIN Q4H Lab 02/23/23 02:00 Ordered UA W/RFX UR CULTURE Stat Lab 02/22/23 18:15 Completed Medication Summary Discontinued Medications Generic Name Dose Route Start Last Admin Trade Name Freq PRN Reason Stop Dose Admin Ceftriaxone Sodium/Dextrose 1 g in 50 mls @ 100 mls/hr 02/22/23 20:27 02/22/23 20:33 Rocephin 1 Gm-D5w 50 Ml Bag IV 02/22/23 20:56 100 ml/hr STAT STA 100 mls/hr Administration Ceftriaxone Sodium/Dextrose Confirm 02/22/23 20:30 Rocephin 1 Gm-D5w 50 Ml Bag Administered 02/22/23 20:31 Dose 1 g in 50 mls @ ud IV .STK-MED ONE Morphine Sulfate 2 mg 02/22/23 17:57 02/22/23 18:18 Morphine Sulfate 2 Mg/Ml Inj IV 02/22/23 17:58 2 mg STAT ONE Administration Morphine Sulfate Confirm 02/22/23 18:01 Morphine Sulfate 2 Mg/Ml Inj Administered 02/22/23 18:02 Dose 2 mg .ROUTE .STK-MED ONE Morphine Sulfate 4 mg 02/22/23 20:27 02/22/23 20:32 Morphine Sulfate 4 Mg/Ml Injection IV 02/22/23 20:28 4 mg STAT ONE Administration Morphine Sulfate Confirm 02/22/23 20:30 Morphine Sulfate 4 Mg/Ml Injection Administered 02/22/23 20:31 Dose 4 mg .ROUTE .STK-MED ONE Ondansetron HCl 4 mg 02/22/23 17:57 02/22/23 18:04 Ondansetron Hcl 4 Mg/2 Ml Vial IV 02/22/23 17:58 4 mg STAT ONE Administration Ondansetron HCl Confirm 02/22/23 18:01 Ondansetron Hcl 4 Mg/2 Ml Vial Administered 02/22/23 18:02 Dose 4 mg .ROUTE .STK-MED ONE Lab/Rad Data: Laboratory Result Diagrams 02/22/23 18:25 02/22/23 18:25 Laboratory Results 02/22/23 02/22/23 02/22/23 Range/Units 18:40 18:25 18:25 WBC (4.0-10.5) x10^3/uL RBC (4.1-5.4) x10^6/uL Hgb (12.0-16.0) g/dL Hct (35-47) % MCV (78-100) fL MCH (26-32) pg MCHC (32-36) g/dL RDW (11.5-14.0) % Plt Count (150-450) x10^3/uL MPV (7.5-11.0) fL Gran % (36.0-66.0) % Immature Gran % (Auto) (0.00-0.4) % Nucleat RBC Rel Count (0.00-0.1) % Eos # (Auto) (0-0.5) x10^3/uL Immature Gran # (Auto) (0.00-0.03) x10^3u/L Absolute Lymphs (auto) (1.0-4.6) x10^3/uL Absolute Monos (auto) (0.0-1.3) x10^3/uL Absolute Nucleated RBC (0.00-0.01) x10^3u/L Lymphocytes % (24.0-44.0) % Monocytes % (0.0-12.0) % Eosinophils % (0.00-5.0) % Basophils % (0.0-0.4) % Absolute Granulocytes (1.4-6.9) x10^3/uL Basophils # (0-0.4) x10^3/uL Sodium 139 (137-145) mmol/L Potassium 4.1 (3.5-5.1) mmol/L Chloride 101 (98-107) mmol/L Carbon Dioxide 30 (22-30) mmol/L Anion Gap 12.7 (5-15) MEQ/L BUN 8 (7-17) mg/dL Creatinine 0.59 (0.52-1.04) mg/dL Estimated GFR > 60.0 ML/MIN Glucose 106 (74-106) mg/dL Calcium 8.3 L (8.4-10.2) mg/dL Total Bilirubin 0.40 (0.2-1.3) mg/dL AST 30 (14-36) U/L ALT 20 (0-35) U/L Alkaline Phosphatase 64 (38-126) U/L Troponin I < 0.012 (0.000-0.034) ng/mL Serum Total Protein 8.0 (6.3-8.2) g/dL Albumin 4.0 (3.5-5.0) g/dL Lipase 63 (23-300) U/L Urine Color (Yellow) Urine Appearance (Clear) Urine pH (4.6-8.0) Ur Specific [place] (1.005-1.030) Urine Protein (Negative) Urine Glucose (UA) (Negative) mg/dL Urine Ketones (Negative) Urine Blood (Negative) Urine Nitrite (Negative) Urine Bilirubin (Negative) Urine Urobilinogen (0.2) mg/dL Ur Leukocyte Esterase (Negative) U Hyaline Cast (Auto) (0-2) /LPF Urine Microscopic RBC (0-5) /HPF Urine Microscopic WBC (0-5) /HPF Ur Epithelial Cells (None Seen) /HPF Urine Bacteria (None Seen) /HPF Urine Culture Reflexed (NO) Urine HCG, Qual NEGATIVE (NEGATIVE) 02/22/23 02/22/23 Range/Units 18:25 18:15 WBC 8.4 (4.0-10.5) x10^3/uL RBC 4.49 (4.1-5.4) x10^6/uL Hgb 13.1 (12.0-16.0) g/dL Hct 39.6 (35-47) % MCV 88.2 (78-100) fL MCH 29.2 (26-32) pg MCHC 33.1 (32-36) g/dL RDW 13.8 (11.5-14.0) % Plt Count 351 (150-450) x10^3/uL MPV 9.3 (7.5-11.0) fL Gran % 56.9 (36.0-66.0) % Immature Gran % (Auto) 0.2 (0.00-0.4) % Nucleat RBC Rel Count 0.0 (0.00-0.1) % Eos # (Auto) 0.11 (0-0.5) x10^3/uL Immature Gran # (Auto) 0.02 (0.00-0.03) x10^3u/L Absolute Lymphs (auto) 2.86 (1.0-4.6) x10^3/uL Absolute Monos (auto) 0.61 (0.0-1.3) x10^3/uL Absolute Nucleated RBC 0.00 (0.00-0.01) x10^3u/L Lymphocytes % 34.1 (24.0-44.0) % Monocytes % 7.3 (0.0-12.0) % Eosinophils % 1.3 (0.00-5.0) % Basophils % 0.2 (0.0-0.4) % Absolute Granulocytes 4.77 (1.4-6.9) x10^3/uL Basophils # 0.02 (0-0.4) x10^3/uL Sodium (137-145) mmol/L Potassium (3.5-5.1) mmol/L Chloride (98-107) mmol/L Carbon Dioxide (22-30) mmol/L Anion Gap (5-15) MEQ/L BUN (7-17) mg/dL Creatinine (0.52-1.04) mg/dL Estimated GFR ML/MIN Glucose (74-106) mg/dL Calcium (8.4-10.2) mg/dL Total Bilirubin (0.2-1.3) mg/dL AST (14-36) U/L ALT (0-35) U/L Alkaline Phosphatase (38-126) U/L Troponin I (0.000-0.034) ng/mL Serum Total Protein (6.3-8.2) g/dL Albumin (3.5-5.0) g/dL Lipase (23-300) U/L Urine Color Red A (Yellow) Urine Appearance Clear (Clear) Urine pH 7.5 (4.6-8.0) Ur Specific [place] 1.010 (1.005-1.030) Urine Protein Trace A (Negative) Urine Glucose (UA) Negative (Negative) mg/dL Urine Ketones Negative (Negative) Urine Blood Large A (Negative) Urine Nitrite Negative (Negative) Urine Bilirubin Negative (Negative) Urine Urobilinogen 1.0 A (0.2) mg/dL Ur Leukocyte Esterase Small A (Negative) U Hyaline Cast (Auto) NONE SEEN (0-2) /LPF Urine Microscopic RBC >100 A (0-5) /HPF Urine Microscopic WBC 11-20 A (0-5) /HPF Ur Epithelial Cells None Seen (None Seen) /HPF Urine Bacteria None Seen (None Seen) /HPF Urine Culture Reflexed YES (NO) Urine HCG, Qual (NEGATIVE) - Progress Progress: improved Progress Note: 42-year-old female presents to our ED with abdominal pain. Physical exam reveals left lower quadrant and suprapubic tenderness. CT abdomen pelvis reveals a left adnexal mass. Ultrasound negative for torsion. CBC CMP negative. UA reveals a urinary tract infection. Patient received a dose of Rocephin in our ED. Morphine administered for pain control. Zofran administered for nausea. Lipase negative. Troponin negative. Patient feels well. Patient is ready for discharge. Patient given a referral to OB/GY for further evaluation of adnexal mass. This adnexal mass appears to have been in a CAT scan performed in 2018. Patient was not aware of it. Patient is currently aware of the mass. Patient agrees to follow-up for further evaluation and treatment of this mass. 42-year-old female presents to our ED for evaluation of abdominal pain. Patient's complaint is acute. Complexity of problem addressed is moderate acute with systemic manifestation. New diagnosis with uncertain prognosis. No critical care time. Complexity of data reviewed and analyzed is moderate. Test independently reviewed by Dr. Carter. Per after school teacher patient has no ovarian torsion. Risk complication and or risk morbidity/mortality of patient management is moderate. A prescription for antibiotic forwarded to patient's pharmacy. Patient will follow up with WIENER PACKER regarding the adnexal mass. Vital stable. Patient comfortable and pain-free. She voices no other complaints concerns at this time. Portions of this note were created with voice recognition technology. There may be grammatical, spelling, punctuation or sound alike errors 02/22/23 22:16 Counseled pt/family regarding: lab results, diagnosis, need for follow-up, rad results - Departure Departure Disposition: Home Clinical Impression: UTI (urinary tract infection), Abdominal pain, Left adnexal mass, Hepatomegaly Condition: Stable Critical Care Time: No Referrals: DONI MCGHEE [Primary Care Provider] - Follow up/PCP as directed LATOYA MASTERS DO [ACTIVE STAFF] - Follow up/PCP as directed Additional Instructions: Discharge/Care Plan PERCY CHOUDHARY NIRMAL was seen on 02/22/23 in the Emergency Room. The patient was counseled regarding Diagnosis,Lab results, Imaging studies, need for follow up and when to return to the Emergency Room. Prescriptions given: Discharge Note I have spoken with the patient and/or caregivers. I have explained the patient's condition, diagnosis and treatment plan based on the information available to me at this time. I have answered the patient's and/or caregiver's questions and addressed any concerns. The patient and/or caregivers have as good understanding of the patient's diagnosis, condition and treatment plan as can be expected at this point. The vital signs have been stable. The patient's condition is stable and appropriate for discharge from the emergency department. The patient will pursue further outpatient evaluation with the primary care physician or other designated or consulting physician as outlined in the discharge instructions. The patient and/or caregivers are agreeable to this plan of care and follow-up instructions have been explained in detail. The patient and/or caregivers have received these instruction. The patient/and or caregivers are aware that any significant change in condition or worsening of symptoms should prompt an immediate return to this or the closest emergency department or call 911. Prescriptions: Cephalexin Mh 500 mg [Keflex 500 mg] 500 mg PO TID #21 cap
[2023-02-22 19:06] LABS: ALKALINE PHOSPHATASE 64 U/L (38-126); ANION GAP 12.7 MEQ/L (5-15); BLOOD UREA NITROGEN 8 mg/dL (7-17); CHLORIDE 101 mmol/L (98-107); Calcium 8.3 mg/dL (8.4-10.2); Carbon Dioxide 30 mmol/L (22-30); Creatinine 1 0.59 mg/dL (0.52-1.04); EST GLOMERULAR FILTRATION RATE > 60.0 ML/MIN; Glucose 106 mg/dL (74-106); LIPASE 63 U/L (23-300); Potassium 4.1 mmol/L (3.5-5.1); SGOT/AST 30 U/L (14-36); SGPT/ALT 20 U/L (0-35); SODIUM 139 mmol/L (137-145)
[2023-02-22 19:22] LABS: ADD URINE CULTURE? YES (NO); Appearance Clear (Clear); Bacteria None Seen /HPF (None Seen); Bilirubin Negative (Negative); Blood Large (Negative); Epithelial Cells None Seen /HPF (None Seen); Glucose, Urine Negative (Negative); Hyaline Casts NONE SEEN /LPF (0-2); Ketones Negative (Negative); Leukocyte Esterase Small (Negative); Nitrite Negative (Negative); Ph 7.5 (4.6-8.0); Protein,Urine Dip Trace (Negative); RBC >100 /HPF (0-5)
--- NOTE | 2023-02-22 19:57 | XRAY ---
CLINICAL HISTORY:Left lower quadrant pain; COMPARISON:Prior CT dated 04/08/2018; TECHNIQUES:Contiguous, multislice, non-enhanced CT scan of the abdomen and pelvis in the axial plane with multiplanar reconstructions. Total DLP-861.75 mGy*cm; CTDI-16.67 mGy; FINDINGS: Liver is enlarged in size measures about 20 cm in craniocaudal axis showing homogeneous attenuation with no obvious focal mass. lesion within the limitations of non-contrast study. No intrahepatic biliary dilatation. Gallbladder is surgically removed as evidenced by metallic densities in the gallbladder fossa. Pancreas and spleen appear unremarkable. No adrenal or retroperitoneal mass. Both kidneys appear normal in size, shows normal contour and attenuation. Minimal fullness seen in the right calyceal system, Stable. No calculus, mass in either kidneys. No ascites. No para-aortic lymphadenopathy. Imaged bowel structures appear unremarkable. No significant bowel wall thickening. No bowel dilatation. Appendix visualized and appear within normal limits. Adequately filled urinary bladder, appear free from intraluminal stones, mass or diverticular outpouching. Uterus appear normal in size, shows normal contour and attenuation. Left adnexal cystic mass lesion measuring about 8 x 5.9 cm showing internal septation. Mild degenerative changes in the visualized spine. Atherosclerotic calcification of the abdominal aorta. Visualized sections of lower chest shows no focal mass or consolidation. IMPRESSION: 1. Comparison done with prior study dated 04/08/2018. 2. Redemonstration of left adnexal cystic mass lesion measuring about 8 x 5.9 cm showing internal septation. Further evaluation by MRI pelvis with contrast is suggested. 3. No significant interval changes when compared with prior study. Electronically Signed by: Kal Larkin MD. 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
[2023-02-22] MEDS ORDERED: ROCEPHIN 1 Gm-D5w 50 ml Bag** 1 G/50 ML IVPB IV STA (20:27)
[2023-02-22] MEDS ORDERED: MORPHINE SULFATE 4 MG INJ IV ONE (20:27)
[2023-02-22] MEDS ORDERED: MORPHINE SULFATE 4 MG INJ ONE (20:30)
[2023-02-22] MEDS ORDERED: ROCEPHIN 1 Gm-D5w 50 ml Bag** 1 G/50 ML IVPB IV ONE (20:30)
[2023-02-22 21:13] VITALS: PULSE 80
[2023-02-22 22:08] VITALS: BP 167/92
[2023-02-22 22:10] VITALS: O2SAT 99
--- NOTE | 2023-02-22 22:49 | XRAY ---
Indication: Pelvic pain. Left torsion. Two-dimensional transabdominal and transvaginal pelvic sonogram performed. Comparison: None Uterus anteverted measuring 9.5 x 3.7 x 5.7 cm. No focal solid/cystic uterine mass. Endometrial stripe measures 6 mm. No endometrial cavity mass or fluid collection. Left ovary measures 6.8 x 4.4 x 6.2 cm and demonstrates normal perfusion. Also 6.3 x 4.0 x 5.5 cm left ovary anechoic cyst. Nonvisualization right ovary. No suspicious solid adnexal mass or free fluid. Impression: 1. Normal perfusion left ovary with 6.3 cm anechoic cyst. 2. Nonvisualization right ovary. 3. Remaining pelvic sonogram is negative. Comment: Preliminary report was given.
== END 2023-02-22 22:18 | disposition home or self-care (01) ==
LOC: ED 17:18
DX: N39.0 Urinary tract infection, site not specified (principal); R10.32 Left lower quadrant pain; R19.04 Left lower quadrant abdominal swelling, mass and lump; R16.0 Hepatomegaly, not elsewhere classified; I10 Essential (primary) hypertension; Z79.899 Other long term (current) drug therapy; Z72.0 Tobacco use
CPT/HCPCS: 36000; 36415; 74176; 76856; 80053; 81001; 81025; 83690; 84484; 85025; 87086; 96374; 96375; 96376; 99284; J0696; J2270; J2405

== ENCOUNTER 2023-03-01 07:27 | Day surgery (SDC) | payer BC, OTHER ==
[~2023-03-01 07:27] MED LIST: Sensorcaine 0.25% 10 ML ONE
[2023-03-01] MEDS ORDERED: KEFZOL 1 GM** 3 G in Sodium Chloride 0.9% 50 ML 50 ML IV ONE (07:33)
[2023-03-01 07:40] LABS: HCG URINE TEST NEGATIVE (NEGATIVE)
[2023-03-01] MEDS ORDERED: Lactated Ringers 1,000 ML IV ONE (07:45)
[2023-03-01 07:58] LABS: Hematocrit 42.1 % (35-47); Hemoglobin 13.7 g/dL (12.0-16.0); Mean Cell Volume 88.4 fL (78-100); Mean Corpuscular Hemoglobin 28.8 pg (26-32); Mean Corpuscular Hgb Concent. 32.5 g/dL (32-36); Platelet Count 336 x10^3/uL (150-450); Red Blood Count 4.76 x10^6/uL (4.1-5.4); White Blood Count 6.5 x10^3/uL (4.0-10.5)
[2023-03-01] MEDS ORDERED: Lactated Ringers 1,000 ML IV SCH (08:00)
[2023-03-01 08:11] LABS: ALBUMIN 4.2 g/dL (3.5-5.0); ALKALINE PHOSPHATASE 74 U/L (38-126); ANION GAP 16.1 MEQ/L (5-15); BLOOD UREA NITROGEN 12 mg/dL (7-17); CHLORIDE 98 mmol/L (98-107); Calcium 8.6 mg/dL (8.4-10.2); Carbon Dioxide 28 mmol/L (22-30); Creatinine 1 0.71 mg/dL (0.52-1.04); EST GLOMERULAR FILTRATION RATE > 60.0 ML/MIN; Glucose 108 mg/dL (74-106); SGOT/AST 37 U/L (14-36); SGPT/ALT 33 U/L (0-35); SODIUM 138 mmol/L (137-145); Total Protein 8.6 g/dL (6.3-8.2)
[2023-03-01] MEDS ORDERED: Versed 2 MG/2 ML Injection ONE (10:09)
[2023-03-01] MEDS ORDERED: DIPRIVAN 200 MG/20 ML IV ONE (10:09)
[2023-03-01] MEDS ORDERED: Zemuron 100 MG/10 ML ONE ×2 (10:09→11:23)
[2023-03-01] MEDS ORDERED: SUBLIMAZE 100 MCG/2 ML ONE ×2 (10:09→10:42)
[2023-03-01] MEDS ORDERED: Decadron 4 MG INJ ONE (10:21)
[2023-03-01] MEDS ORDERED: Zofran 4 MG/2 ML VIAL ONE (11:25)
[2023-03-01] MEDS ORDERED: TORAdol 30 mg Injection ONE (11:25)
[2023-03-01] MEDS ORDERED: BRIDION 200MG/2ML IV ONE (11:29)
[2023-03-01] MEDS ORDERED: DILAUDID 2 MG INJECTION ONE (11:33)
[2023-03-01] MEDS ORDERED: BREVIBLOC 100 MG/10 ML IV ONE (11:36)
[2023-03-01] MEDS ORDERED: TRANDATE 20 MG/4 ML SYRINGE IV ONE (11:56)
[2023-03-01 12:46] LABS: Appearance Clear (Clear); Bacteria None Seen /HPF (None Seen); Bilirubin Negative (Negative); Blood Negative (Negative); Epithelial Cells None Seen /HPF (None Seen); Glucose, Urine Negative (Negative); Hyaline Casts NONE SEEN /LPF (0-2); Ketones Negative (Negative); Leukocyte Esterase Negative (Negative); Nitrite Negative (Negative); Ph 7.5 (4.6-8.0); Protein,Urine Dip Negative (Negative); WBC 0-2 /HPF (0-5)
[2023-03-01 12:56] VITALS: O2SAT 92
[2023-03-01 13:21] VITALS: BP 133/90; PULSE 80
--- NOTE | 2023-03-02 09:54 | OP ---
SURGERY DATE/TIME: 03/01/2023 1023 PREOPERATIVE DIAGNOSIS: Left ovarian cyst with pelvic pain. POSTOPERATIVE DIAGNOSES: 1) Left ovarian cyst with pelvic pain. 2) Left fallopian tube cyst. PROCEDURES: 1) Laparoscopic left ovarian cystectomy. 2) Excision of left fallopian cyst. SURGEON: Justin Simpson D.O. HOSPICE SOCIAL WORKER: Rosa Worthy hydraulic controls technician. ANESTHESIA: General. ESTIMATED BLOOD LOSS: Minimal. COMPLICATIONS: None. INDICATIONS: The risks, benefits, indications and alternatives of the procedure were reviewed with the patient prior to procedure. The patient understood the risk of infection, bleeding, bowel injury, bladder injury, ureteral injury, pelvic infection and thromboembolic disorder associated with this surgery and desires to have this surgery as a possible need to alleviate her current medical condition. DESCRIPTION OF PROCEDURE AND FINDINGS: At this point the patient is taken to the operating room, placed in the supine position and given general anesthesia where she was prepped and draped in the usual sterile fashion. A 5 mm skin incision made in the umbilical fold and a 5 mm trocar and sleeve were advanced under direct visualization where pneumoperitoneum was obtained with 4 liters CO2 gas. Because the incision was in the left middle quadrant region, a 5 mm trocar and sleeve was placed in the right lower quadrant region where 5 mm trocar and sleeve was placed without complication. An additional incision was made 2 cm above the symphysis pubis where a 10 cm incision was made where 10 mm trocar and sleeve were advanced under direct visualization. From this point visualization appeared for her to have a left ovarian cyst approximately 6 x 5 cm with an additional fallopian tube cyst approximately 5 x 4 cm. From this point the LigaSure was then used to excise the fallopian tube cyst where the LigaSure was placed on the left mesosalpinx and fallopian tube was clamped, coagulated, cut and was removed without complication in its entirety. From this point the adnexa was then lifted and a circumferential incision was made the ovarian cortex from the ovary and was done so without complication and the cystic portion was removed with the Endo-grasper in its entirety where the cystic content was suctioned and was done so without complication. There was minimal bleeding that was noted and bipolar was used to coagulate the surface of the stroma. From this point after removal of the cystic portion, the fallopian tube cyst was removed from the 8 mm trocar site without complication. From this point the remaining pelvis and abdomen appeared to be within normal limits. All instruments were removed from the patient's abdominal region. The 8 mm port was closed with 0 Vicryl suture followed by 4-0 Monocryl suture and the remaining incision was closed with 4-0 Monocryl suture. The patient was then taken out of anesthesia and was then taken to the recovery room in stable condition. All instruments and laps were accounted for x2.
== END 2023-03-01 13:28 | disposition home or self-care (01) ==
LOC: SDC 07:27
PROVIDERS: ATTEND Obstetrics & Gynecology
DX: N83.202 Unspecified ovarian cyst, left side (principal); N83.8 Other noninflammatory disorders of ovary, fallopian tube and broad ligament
CPT/HCPCS: 80053; 81001; 81025; 85027; 87086; 96360; 96361; 96374; 96376; J0690; J1100; J1170; J1885; J2250; J2405; J2704; J3010

== ENCOUNTER 2023-03-02 09:42 | Emergency (ER) | payer BC, OTHER ==
[2023-03-02] MEDS ORDERED: Sodium Chloride 0.9% 1000 ML 1,000 ML IV STA ×2 (09:47→11:23)
[2023-03-02] MEDS ORDERED: Zofran 4 MG/2 ML VIAL IV ONE ×2 (09:48→12:36)
[2023-03-02] MEDS ORDERED: Sodium Chloride 0.9% 1000 ML 1,000 ML ONE ×2 (10:02→12:33)
[2023-03-02] MEDS ORDERED: Zofran 4 MG/2 ML VIAL ONE ×2 (10:02→12:51)
[2023-03-02 10:06] LABS: Absolute Neutrophil Ct (ANC) 11.25 x10^3/uL (1.4-6.9); BASOPHIL % 0.1 % (0.0-0.4); Basophil (Absolute #) 0.01 x10^3/uL (0-0.4); Eosinophil (Absolute #) 0 x10^3/uL (0-0.5); Hematocrit 39.3 % (35-47); Hemoglobin 12.9 g/dL (12.0-16.0); IMMATURE GRAN # 0.06 x10^3u/L (0.00-0.03); IMMATURE GRAN % 0.4 % (0.00-0.4); Lymphocyte (Absolute #) 2.46 x10^3/uL (1.0-4.6); Lymphocytes % 16.7 % (24.0-44.0); Mean Cell Volume 88.5 fL (78-100); Mean Corpuscular Hemoglobin 29.1 pg (26-32); Mean Corpuscular Hgb Concent. 32.8 g/dL (32-36); Mean Platelet Volume 8.9 fL (7.5-11.0); Monocyte (Absolute #) 0.94 x10^3/uL (0.0-1.3); Monocytes % 6.4 % (0.0-12.0); Neutrophil % 76.4 % (36.0-66.0); Platelet Count 378 x10^3/uL (150-450); Red Blood Count 4.44 x10^6/uL (4.1-5.4); Red Cell Distribution Width 14.4 % (11.5-14.0); White Blood Count 14.7 x10^3/uL (4.0-10.5)
[2023-03-02] MEDS ORDERED: SUBLIMAZE 100 MCG/2 ML IV ONE (10:12)
[2023-03-02 10:17] LABS: ALBUMIN 4.4 g/dL (3.5-5.0); ALKALINE PHOSPHATASE 107 U/L (38-126); ANION GAP 17.9 MEQ/L (5-15); BLOOD UREA NITROGEN 20 mg/dL (7-17); CHLORIDE 100 mmol/L (98-107); Carbon Dioxide 24 mmol/L (22-30); Creatinine 1 0.75 mg/dL (0.52-1.04); EST GLOMERULAR FILTRATION RATE > 60.0 ML/MIN; Glucose 124 mg/dL (74-106); SGOT/AST 146 U/L (14-36); SGPT/ALT 128 U/L (0-35); SODIUM 138 mmol/L (137-145); Total Protein 8.9 g/dL (6.3-8.2)
--- NOTE | 2023-03-02 10:18 | ERPHSYRPT ---
- History of Present Illness Historian: patient Exam Limitations: no limitations Patient Subjective Stated Complaint: nausea, vomiting and abdominal pain after surgical procedure on 03/01/23 (lap. ovarian cystectomy) with Dr. Simpson. Triage Nursing Assessment: Patient ambulated back to ER. NO SOB. She is alert and oriented. Face is a little flushed. 3 surgical incisions noted (right abdomen, umbilicus, lower abdominal fold) and all are well approximated with surgical glue and no s/s of infection to areas at this time. Patient is tachy; patient states that she has been unable to take her HTN medications related to vomiting. Physician History: 42 yo WF w N/V x 1 day s/p L ovarian cyst removal per Dr. Simpson yesterday. Pt has incisional pain rated a 3 at present. She was prescribed [place] which has caused her nausea/vomting in the past. Pt denies hematemesis/diarrhea/fever/chest pain/dyspnea/dysuria/hematuria/ negative yesterday, but she has had some chills. Timing/Duration: yesterday Activities at Onset: rest Quality: sharpness Abdominal Pain Onset Location: other (Incisional) Pain Radiation: no radiation Severity of Pain-Max: moderate Severity of Pain-Current: mild Modifying Factors: Improves With: vomiting Associated Symptoms: denies symptoms, loss of appetite, nausea, vomiting Allergies/Adverse Reactions: No Known Drug Allergies Allergy (Verified 03/02/23 09:49) Home Medications: Clonidine HCl 0.1 mg [Clonidine 0.1 mg Tablet] 2 tab PO HS 02/22/23 [History] PARoxetine HCL [Paxil] 30 mg PO DAILY 02/22/23 [History] Hydroxyzine HCl 25 mg [Atarax 25 mg] 25 mg PO BID 03/01/23 [History] Naproxen 500 mg [Naprosyn 500 MG] 500 mg PO BID 03/01/23 [History] Smz/Tmp Ds Tablet [Bactrim Ds Tablet] 1 tab PO Q12H 03/01/23 [History] Hx Tetanus, Diphtheria Vaccination/Date Given: Yes Hx Influenza Vaccination/Date Given: No Hx Pneumococcal Vaccination/Date Given: No Immunizations Up to Date: Yes Travel Risk - International Travel Have you traveled outside of the country in past 3 weeks: No - Coronavirus Screening Are you exhibiting any of the following symptoms?: No Close contact with a COVID-19 positive Pt in past 14-21 Days: No - Vaccine Status Have you recieved a Covid-19 vaccination: Yes [place] Induction: Moderna - Vaccination Dates Date of 2cond Vaccination (if applicable): 2020 - Review of Systems Constitutional: No Symptoms, Chills Eyes: No Symptoms Ears, Nose, & Throat: No Symptoms Respiratory: No Symptoms Cardiac: No Symptoms Abdominal/Gastrointestinal: No Symptoms, Abdominal Pain, Nausea, Vomiting Genitourinary Symptoms: No Symptoms Musculoskeletal: No Symptoms Skin: No Symptoms Neurological: No Symptoms Psychological: No Symptoms Endocrine: No Symptoms Hematologic/Lymphatic: No Symptoms Immunological/Allergic: No Symptoms - Past Medical History Pertinent Past Medical History: Yes Neurological History: Migraines ENT History: No Pertinent History Cardiac History: Hypertension Respiratory History: No Pertinent History Endocrine Medical History: No Pertinent History Musculoskeletal History: No Pertinent History GI Medical History: No Pertinent History History: No Pertinent History Psycho-Social History: Anxiety, Depression Female Reproductive Disorders: No Pertinent History Other Medical History: ovarian cysts - Past Surgical History Past Surgical History: Yes Neuro Surgical History: No Pertinent History Cardiac: No Pertinent History Respiratory: No Pertinent History Gastrointestinal: No Pertinent History Genitourinary: No Pertinent History Musculoskeletal: No Pertinent History Female Surgical History: Tubal Ligation, Other Other Surgical History: biopsy of cervix d/t abnormal cells. surgery to remove one fallopian tube due to tubal , lap. ovarian cystectomy on 03/01/23 - Social History Smoking Status: Former smoker How long have you smoked: years Exposure to second hand smoke: No Drug Use: none Patient Lives Alone: No - Female History Hx Now: No (Negative preg test yesterday) - Nursing Vital Signs Nursing Vital Signs: Initial Vital Signs Temperature 98.1 F 03/02/23 09:42 Pulse Rate 104 H 03/02/23 09:42 Respiratory Rate 20 03/02/23 09:42 Blood Pressure 146/104 03/02/23 09:42 O2 Sat by Pulse Oximetry 98 03/02/23 09:42 Pain Scale Pain Intensity 5 Tachy/Hypertensive - Physical Exam General Appearance: mild distress Eye Exam: PERRL/EOMI, eyes nml inspection Ears, Nose, Throat Exam: normal ENT inspection, TMs normal, pharynx normal, moist mucous membranes Neck Exam: normal inspection, non-tender, supple, full range of motion, No meningismus, No mass, No Brudzinski, No Kernig's Respiratory Exam: normal breath sounds, lungs clear, airway intact, No respiratory distress Cardiovascular Exam: tachycardia, capillary refill <2 sec, No murmur Gastrointestinal/Abdomen Exam: soft (Decreased BS/umbilical incision,L inguinal incision, supra-pubic incision clean, dry, intact/Moderate TTP incisional areas) Extremity Exam: normal inspection, normal range of motion Neurologic Exam: alert, oriented x 3, cooperative, conference assistant II-XII nml as tested, normal mood/affect, nml cerebellar function, nml station & gait, sensation nml Skin Exam: normal color, warm Lymphatic Exam: No adenopathy SpO2 Interpretation: normal SpO2: 98 O2 Delivery: Room Air - Course Nursing assessment & vital signs reviewed: Yes EKG Interpreted by Me: RATE (NSR/Rate 69/Normal QT-QTc/Normal Twaves/No acute ST segment changes) - CT Exams Abdomen/Pelvis CT Interpretation: Discussed w/radiologist (CT ab-pelvis w IV contrast-small hiatal hernia/post-surgical changes, including diffuse abdominal -pelvic wall SQ emphysema and small cul de sac fluid/No abscess/Urinary bladder intra-luminal air) Head CT Interpretation: Discussed w/radiologist (CT head WNL) Ordered Tests: Active Orders 24 hr Category Date Time Status EKG-ER Only STAT Care 03/02/23 13:46 Completed ABDOMEN AND PELVIS W CONTRAST [CT] Stat Exams 03/02/23 10:29 Completed HEAD WITHOUT CONTRAST [CT] Stat Exams 03/02/23 13:49 Completed AMYLASE Stat Lab 03/02/23 09:58 Completed CBC W DIFF Stat Lab 03/02/23 09:58 Completed CMP Stat Lab 03/02/23 09:58 Completed CULTURE,URINE Stat Lab 03/02/23 10:39 Received LIPASE Stat Lab 03/02/23 09:58 Completed Lactic Acid Stat Lab 03/02/23 09:46 Completed TROPONIN Q4H Lab 03/02/23 09:58 Completed UA W/RFX UR CULTURE Stat Lab 03/02/23 10:39 Completed Medication Summary Discontinued Medications Generic Name Dose Route Start Last Admin Trade Name Freq PRN Reason Stop Dose Admin Clonidine 0.2 mg 03/02/23 13:49 03/02/23 14:01 Clonidine Hcl 0.1 Mg Tablet PO 03/02/23 13:50 0.2 mg STAT ONE Administration Clonidine Confirm 03/02/23 13:59 Clonidine Hcl 0.1 Mg Tablet Administered 03/02/23 14:00 Dose 0.2 mg .ROUTE .STK-MED ONE Fentanyl Citrate 50 mcg 03/02/23 10:12 03/02/23 10:20 Fentanyl Citrate 100 Mcg/2 Ml* Vial IV 03/02/23 10:13 50 mcg STAT ONE Administration Fentanyl Citrate Confirm 03/02/23 10:19 Fentanyl Citrate 100 Mcg/2 Ml* Vial Administered 03/02/23 10:20 Dose 100 mcg .ROUTE .STK-MED ONE Sodium Chloride 1,000 mls @ 999 mls/hr 03/02/23 09:47 03/02/23 11:35 Sodium Chloride 0.9% 1000 Ml IV 03/02/23 10:47 Infused .Q1H1M STA Infusion Sodium Chloride Confirm 03/02/23 10:02 Sodium Chloride 0.9% 1000 Ml Administered 03/02/23 10:03 Dose 1,000 mls @ ud .ROUTE .STK-MED ONE Sodium Chloride 1,000 mls @ 999 mls/hr 03/02/23 11:23 03/02/23 13:40 Sodium Chloride 0.9% 1000 Ml IV 03/02/23 12:23 Infused .Q1H1M STA Infusion Sodium Chloride Confirm 03/02/23 12:33 Sodium Chloride 0.9% 1000 Ml Administered 03/02/23 12:34 Dose 1,000 mls @ ud .ROUTE .STK-MED ONE Ondansetron HCl 4 mg 03/02/23 09:48 03/02/23 10:03 Ondansetron Hcl 4 Mg/2 Ml Vial IV 03/02/23 09:49 4 mg STAT ONE Administration Ondansetron HCl Confirm 03/02/23 10:02 Ondansetron Hcl 4 Mg/2 Ml Vial Administered 03/02/23 10:03 Dose 4 mg .ROUTE .STK-MED ONE Ondansetron HCl 4 mg 03/02/23 12:36 03/02/23 12:51 Ondansetron Hcl 4 Mg/2 Ml Vial IV 03/02/23 12:37 4 mg STAT ONE Administration Ondansetron HCl Confirm 03/02/23 12:51 Ondansetron Hcl 4 Mg/2 Ml Vial Administered 03/02/23 12:52 Dose 4 mg .ROUTE .[facility]-MED ONE Lab/Rad Data: Laboratory Result Diagrams 03/02/23 09:58 03/02/23 09:58 Laboratory Results 03/02/23 03/02/23 03/02/23 Range/Units 10:39 09:58 09:58 WBC (4.0-10.5) x10^3/uL RBC (4.1-5.4) x10^6/uL Hgb (12.0-16.0) g/dL Hct (35-47) % MCV (78-100) fL MCH (26-32) pg MCHC (32-36) g/dL RDW (11.5-14.0) % Plt Count (150-450) x10^3/uL MPV (7.5-11.0) fL Gran % (36.0-66.0) % Immature Gran % (Auto) (0.00-0.4) % Nucleat RBC Rel Count (0.00-0.1) % Eos # (Auto) (0-0.5) x10^3/uL Immature Gran # (Auto) (0.00-0.03) x10^3u/L Absolute Lymphs (auto) (1.0-4.6) x10^3/uL Absolute Monos (auto) (0.0-1.3) x10^3/uL Absolute Nucleated RBC (0.00-0.01) x10^3u/L Lymphocytes % (24.0-44.0) % Monocytes % (0.0-12.0) % Eosinophils % (0.00-5.0) % Basophils % (0.0-0.4) % Absolute Granulocytes (1.4-6.9) x10^3/uL Basophils # (0-0.4) x10^3/uL Sodium (137-145) mmol/L Potassium (3.5-5.1) mmol/L Chloride (98-107) mmol/L Carbon Dioxide (22-30) mmol/L Anion Gap (5-15) MEQ/L BUN (7-17) mg/dL Creatinine (0.52-1.04) mg/dL Estimated GFR ML/MIN Glucose (74-106) mg/dL Lactic Acid (0.4-2.0) Calcium (8.4-10.2) mg/dL Total Bilirubin (0.2-1.3) mg/dL AST (14-36) U/L ALT (0-35) U/L Alkaline Phosphatase (38-126) U/L Troponin I < 0.012 (0.000-0.034) ng/mL Serum Total Protein (6.3-8.2) g/dL Albumin (3.5-5.0) g/dL Amylase 60 (30-110) U/L Lipase 81 (23-300) U/L Urine Color Dark Yellow A (Yellow) Urine Appearance Cloudy A (Clear) Urine pH 6.0 (4.6-8.0) Ur Specific [place] >=1.030 A (1.005-1.030) Urine Protein 30 (Negative) Urine Glucose (UA) Negative (Negative) mg/dL Urine Ketones 40 A (Negative) Urine Blood Moderate A (Negative) Urine Nitrite Negative (Negative) Urine Bilirubin Small A (Negative) Urine Urobilinogen 1.0 A (0.2) mg/dL Ur Leukocyte Esterase Negative (Negative) U Hyaline Cast (Auto) NONE SEEN (0-2) /LPF Urine Microscopic RBC 6-10 A (0-5) /HPF Urine Microscopic WBC 0-2 (0-5) /HPF Ur Epithelial Cells Many A (None Seen) /HPF Urine Bacteria None Seen (None Seen) /HPF Urine Culture Reflexed YES (NO) 03/02/23 03/02/23 03/02/23 Range/Units 09:58 09:58 09:46 WBC 14.7 H (4.0-10.5) x10^3/uL RBC 4.44 (4.1-5.4) x10^6/uL Hgb 12.9 (12.0-16.0) g/dL Hct 39.3 (35-47) % MCV 88.5 (78-100) fL MCH 29.1 (26-32) pg MCHC 32.8 (32-36) g/dL RDW 14.4 H (11.5-14.0) % Plt Count 378 (150-450) x10^3/uL MPV 8.9 (7.5-11.0) fL Gran % 76.4 H (36.0-66.0) % Immature Gran % (Auto) 0.4 (0.00-0.4) % Nucleat RBC Rel Count 0.0 (0.00-0.1) % Eos # (Auto) 0 (0-0.5) x10^3/uL Immature Gran # (Auto) 0.06 H (0.00-0.03) x10^3u/L Absolute Lymphs (auto) 2.46 (1.0-4.6) x10^3/uL Absolute Monos (auto) 0.94 (0.0-1.3) x10^3/uL Absolute Nucleated RBC 0.00 (0.00-0.01) x10^3u/L Lymphocytes % 16.7 L (24.0-44.0) % Monocytes % 6.4 (0.0-12.0) % Eosinophils % 0.0 (0.00-5.0) % Basophils % 0.1 (0.0-0.4) % Absolute Granulocytes 11.25 H (1.4-6.9) x10^3/uL Basophils # 0.01 (0-0.4) x10^3/uL Sodium 138 (137-145) mmol/L Potassium 4.0 (3.5-5.1) mmol/L Chloride 100 (98-107) mmol/L Carbon Dioxide 24 (22-30) mmol/L Anion Gap 17.9 H (5-15) MEQ/L BUN 20 H (7-17) mg/dL Creatinine 0.75 (0.52-1.04) mg/dL Estimated GFR > 60.0 ML/MIN Glucose 124 H (74-106) mg/dL Lactic Acid 1.4 (0.4-2.0) Calcium 9.0 (8.4-10.2) mg/dL Total Bilirubin 1.00 (0.2-1.3) mg/dL AST 146 H (14-36) U/L ALT 128 H (0-35) U/L Alkaline Phosphatase 107 (38-126) U/L Troponin I (0.000-0.034) ng/mL Serum Total Protein 8.9 H (6.3-8.2) g/dL Albumin 4.4 (3.5-5.0) g/dL Amylase (30-110) U/L Lipase (23-300) U/L Urine Color (Yellow) Urine Appearance (Clear) Urine pH (4.6-8.0) Ur Specific [place] (1.005-1.030) Urine Protein (Negative) Urine Glucose (UA) (Negative) mg/dL Urine Ketones (Negative) Urine Blood (Negative) Urine Nitrite (Negative) Urine Bilirubin (Negative) Urine Urobilinogen (0.2) mg/dL Ur Leukocyte Esterase (Negative) U Hyaline Cast (Auto) (0-2) /LPF Urine Microscopic RBC (0-5) /HPF Urine Microscopic WBC (0-5) /HPF Ur Epithelial Cells (None Seen) /HPF Urine Bacteria (None Seen) /HPF Urine Culture Reflexed (NO) - Progress Progress: improved Progress Note: 03/02/23 19:55 Nursing note and vital signs reviewed No food or housing insecurities noted Additional history per pt's mother 1L NS fluid/4mg IV Zofran w improvement 1L NS bolus Spoke w Dr. Simpson who reviewed labs and mutual agreement to send home Went to check on pt who started to vomit again and was diaphoretic Spoke w Dr. Simpson about admit who wanted pt admitted to Dr. Leon EKG done to to r/o cardiac cause which was WNL CT head done to r/o bleed which was negative Additional 4mg IV Zofran given Hypertension treated w 0.2 po Clonidine Pt stated that she was much better after treatment and refused admit at this time Pt holding down fluids before discharge wo difficulty and in NAD. Pain greatly improved Dr. Simpson came to ER to consult on pt but unable to talk because of performing procedure on another pt. 03/02/23 19:59 03/02/23 20:01 03/02/23 20:04 03/02/23 20:05 03/02/23 20:06 Discussed with : Merlin Counseled pt/family regarding: lab results, diagnosis, need for follow-up, rad results Medical Desision Making - Independent Historian Additional History obtained from: Mother - Discussion of managment Care discussed with:: specialist Reviewed:: Test results, Need for additional workup - Diagnostic Testing Radiological Interpretation: Reviewed by me - Risk of complications The pt has a mod risk of morbidity or mortality based on: Need for prescription drug management - Departure Departure Disposition: Home Clinical Impression: Nausea & vomiting, Hypertension Condition: Stable Critical Care Time: No Referrals: DONI REYES [Primary Care Provider] - Follow up/PCP as directed Instructions: Nausea and Vomiting, Adult (DC) Additional Instructions: Follow up with Dr. Simpson tomorrow Angus for nausea/vomiting Start taking Clonidine twice a day Follow up with Dr. Reyes about blood pressure Return to ER for increasing abdominal pain, temperature greater than 100.5, or inability to hold down fluids Prescriptions: Ondansetron ODT 4 MG [Zofran Odt 4 mg] 4 mg PO Q6H PRN PRN #10 tablet PRN Reason: Nausea Clonidine HCl 0.1 mg [Clonidine 0.1 mg Tablet] 0.1 mg PO BID #60 tablet
[2023-03-02] MEDS ORDERED: SUBLIMAZE 100 MCG/2 ML ONE (10:19)
[2023-03-02 10:32] LABS: AMYLASE 60 U/L (30-110); LIPASE 81 U/L (23-300)
[2023-03-02 10:51] LABS: Appearance Cloudy (Clear); Bacteria None Seen /HPF (None Seen); Bilirubin Small (Negative); Blood Moderate (Negative); Epithelial Cells Many /HPF (None Seen); Glucose, Urine Negative (Negative); Hyaline Casts NONE SEEN /LPF (0-2); Ketones 40 (Negative); Leukocyte Esterase Negative (Negative); Nitrite Negative (Negative); Protein,Urine Dip 30 (Negative); Specific Gravity >=1.030 (1.005-1.030); WBC 0-2 /HPF (0-5)
[2023-03-02 11:16] LABS: ADD URINE CULTURE? YES (NO)
--- NOTE | 2023-03-02 12:20 | XRAY ---
Indication: Chills, hot flashes, vomiting, pain, and shaking. Status post surgery for left ovary cyst 1 day earlier. Multiple contiguous images obtained through the abdomen and pelvis using 80 cc Isovue 370 contrast. Comparison: February 22, 2023 Lung bases demonstrates minimal dependent atelectasis. No infiltrate or effusion. Heart not enlarged. Stable small hiatal hernia. New diffuse abdominal/pelvic wall subcutaneous emphysema presumed related to recent surgery. Pelvis demonstrates new small cul-de-sac free fluid also presumed postsurgical. No suspicious walled off fluid collection or abscess. Noncontrasted stomach and bowel loops nonobstructed. Again cholecystectomy. No free air. Both kidneys enhance and excrete. Urinary bladder demonstrates new intraluminal air bubbles either iatrogenic from recent catheterization versus gas-forming infection. Remaining liver, pancreas, spleen, adrenal glands, kidneys, ureters, bladder, and uterus are unremarkable. Stable mild aortoiliac calcifications. No AAA or pathologic retroperitoneal lymphadenopathy. Impression: 1. New postsurgical changes including diffuse abdominal/pelvic wall subcutaneous emphysema and small pelvic cul-de-sac free fluid. No walled off fluid collection/abscess. 2. New urinary bladder intraluminal air bubbles either iatrogenic versus gas-forming infection. 3. Stable incidental small hiatal hernia.
[2023-03-02] MEDS ORDERED: CLONIDINE 0.1 MG TABLET PO ONE (13:49)
[2023-03-02] MEDS ORDERED: CLONIDINE 0.1 MG TABLET ONE (13:59)
--- NOTE | 2023-03-02 14:35 | XRAY ---
Indication: Severe headache. Multiple contiguous axial images obtained through the head without contrast. Comparison: None Normal appearing brain parenchyma, ventricles, and bony calvarium. Visualized paranasal sinuses and mastoid air cells are clear. Impression: Normal CT head without contrast exam.
[2023-03-02 14:52] VITALS: BP 161/88; PULSE 65; O2SAT 98
== END 2023-03-02 15:06 | disposition home or self-care (01) ==
LOC: ED 09:42
DX: R11.2 Nausea with vomiting, unspecified (principal); I10 Essential (primary) hypertension; T88.9XXA Complication of surgical and medical care, unspecified, initial encounter; Z79.899 Other long term (current) drug therapy; Z20.828 Contact with and (suspected) exposure to other viral communicable diseases
CPT/HCPCS: 36000; 36415; 70450; 74177; 80053; 81001; 82150; 83605; 83690; 84484; 85025; 87086; 93005; 96374; 96375; 99284; J2405; J3010; A9270-GY

== ENCOUNTER 2023-04-12 22:34 | Emergency (ER) | payer BC, OTHER ==
[2023-04-12 23:10] VITALS: O2SAT 97
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
[2023-04-13] MEDS ORDERED: Cyclobenzaprine 10 MG ONE (00:55)
[2023-04-13] MEDS ORDERED: TORAdol 30 mg Injection ONE (00:55)
[2023-04-13] MEDS ORDERED: Cyclobenzaprine 10 MG PO ONE (00:58)
[2023-04-13] MEDS ORDERED: TORAdol 30 mg Injection IM ONE (00:58)
[2023-04-13 01:09] VITALS: BP 129/74; PULSE 77
== END 2023-04-13 01:17 | disposition home or self-care (01) ==
LOC: ED 22:34
DX: S16.1XXA Strain of muscle, fascia and tendon at neck level, initial encounter (principal); S29.012A Strain of muscle and tendon of back wall of thorax, initial encounter; V89.2XXA Person injured in unspecified motor-vehicle accident, traffic, initial encounter; M62.830 Muscle spasm of back; I10 Essential (primary) hypertension; Z79.899 Other long term (current) drug therapy
CPT/HCPCS: 72125; 72128; 96372; 99284; J1885; A9270-GY

== ENCOUNTER 2024-07-21 21:19 | Emergency (ER) | payer SELFPAY ==
--- NOTE | 2024-07-21 21:38 | ERPHSYRPT ---
- History of Present Illness Time Seen by Provider: 07/21/24 21:33 Source: patient Exam Limitations: no limitations Physician History: Pt states she was at a friend's house about 3 hurs ago when she made a sudden move which startled the friend's pit mix dog and it bit her left hand. Last tetanus is unknown. Dog's immunizations are reportedly UTD. Allergies/Adverse Reactions: No Known Drug Allergies Allergy (Verified 04/12/23 23:00) Home Medications: Clonidine HCl 0.1 mg [Clonidine 0.1 mg Tablet] 2 tab PO HS 02/22/23 [History] PARoxetine HCL [Paxil] 30 mg PO DAILY 02/22/23 [History] Hydroxyzine HCl 25 mg [Atarax 25 mg] 25 mg PO BID 03/01/23 [History] Clonidine HCl 0.1 mg [Clonidine 0.1 mg Tablet] 0.1 mg PO DAILY 04/12/23 [History] Lisinopril 10 mg [Zestril 10 MG] 10 mg PO DAILY 04/12/23 [History] Hx Tetanus, Diphtheria Vaccination/Date Given: No Hx Influenza Vaccination/Date Given: No Hx Pneumococcal Vaccination/Date Given: No - Review of Systems Skin: Other (dog bite to left hand today) - Past Medical History Pertinent Past Medical History: Yes Neurological History: Migraines ENT History: No Pertinent History Cardiac History: Hypertension Respiratory History: No Pertinent History Endocrine Medical History: No Pertinent History Musculoskeletal History: No Pertinent History GI Medical History: No Pertinent History History: No Pertinent History Psycho-Social History: Anxiety, Depression Female Reproductive Disorders: No Pertinent History Other Medical History: ovarian cysts - Past Surgical History Past Surgical History: Yes Neuro Surgical History: No Pertinent History Cardiac: No Pertinent History Respiratory: No Pertinent History Gastrointestinal: No Pertinent History Genitourinary: No Pertinent History Musculoskeletal: No Pertinent History Female Surgical History: Tubal Ligation, Other Other Surgical History: biopsy of cervix d/t abnormal cells. surgery to remove one fallopian tube due to tubal , lap. ovarian cystectomy on 03/01/23 - Social History Smoking Status: Never smoker How long have you smoked: years Exposure to second hand smoke: No Drug Use: none Patient Lives Alone: No - Nursing Vital Signs Nursing Vital Signs: Initial Vital Signs Temperature 98.6 F 07/21/24 21:25 Pulse Rate 91 H 07/21/24 21:25 Respiratory Rate 18 07/21/24 21:25 Blood Pressure 123/92 07/21/24 21:25 O2 Sat by Pulse Oximetry 100 07/21/24 21:25 Pain Scale Pain Intensity 4 - Physical Exam General Appearance: alert Shoulder Exam: normal ROM Elbow/Forearm Exam: normal ROM Wrist Exam: normal ROM Hand Exam: normal ROM, laceration (3 puncture wounds to left hand dorsum, one puncture wound to left palm and a 2 cm laceration to palmar aspect proximal to left thumb. ) Ordered Tests: Active Orders 24 hr Category Date Time Status Wound Care STAT Care 07/21/24 21:47 Active Medication Summary Discontinued Medications Generic Name Dose Route Start Last Admin Trade Name Freq PRN Reason Stop Dose Admin Amoxicillin/Clavulanate Potassium 875 mg 07/21/24 21:48 Amox Tr/Potassium Clavulanate 875 Mg Tablet PO 07/21/24 21:49 STAT ONE - Progress Counseled pt/family regarding: diagnosis, need for follow-up - Departure Departure Disposition: Home Clinical Impression: Dog bite of left hand Condition: Stable Critical Care Time: No Instructions: Animal Bites (DC) Additional Instructions: Keep left hand wounds clean & dry. Apply neosporin & loose bandages to left hand wounds until healed. Forms: Work/School Release Form Prescriptions: Amox Tr/Potass Clav. 875 mg [Augmentin 875-125 Tablet] 875 mg PO BID #20 tablet
[2024-07-21 21:39] VITALS: TEMP 98.6
[2024-07-21] MEDS ORDERED: Augmentin 875-125 Tablet ONE (21:56)
[2024-07-21] MEDS: Augmentin 875-125 Tablet PO ONE (21:57)
[2024-07-21] MEDS ORDERED: Adacel Vial IM ONE (22:20)
[2024-07-21] MEDS: Adacel Vial IM ONE (22:21)
[2024-07-21 22:27] VITALS: BP 119/89; PULSE 99; RESP 17; O2SAT 97
[2024-07-21] MEDS ORDERED: BACIGUENT PACKET ONE (22:36)
== END 2024-07-21 22:46 | disposition home or self-care (01) ==
LOC: ED 21:19
DX: S60.572A Other superficial bite of hand of left hand, initial encounter (principal); W54.0XXA Bitten by dog, initial encounter; I10 Essential (primary) hypertension; Z79.899 Other long term (current) drug therapy; Z23 Encounter for immunization
CPT/HCPCS: 90471; 90715; 99283; A9270-GY